=== PATIENT | male | born 1955 | race Caucasian/White ===

== ENCOUNTER 2016-10-14 00:59 | Emergency (ER) | payer OTHER ==
--- NOTE | 2016-10-17 19:49 | ER ---
ADMIT: 10/14/2016 RM/LOC: ER [facility] MR#: [id number] [address] [id number] DANIEL [place] [address] Emergency Room Report SEX: M AGE: 61 : 1955 DATE: 10/14/2016 HISTORY OF PRESENT ILLNESS: The patient is a 61-year-old male, with a past medical history of borderline asthma, on medication, who came to the ER with chief complaint of shortness of breath, cough, congestion chronically more than a week. The patient denies any chest pain. PHYSICAL EXAMINATION: GENERAL: In the ER, the patient was in no obvious distress. VITAL SIGNS: Afebrile, respiratory rate was 16, pulse was 84, and blood pressure was 121/85. HEAD and NECK: Noncontributory. Trachea midline. LUNGS: Bilateral wheezing on both lungs without any crackles. HEART: Normal heart sounds without any extra murmurs or S3 or S4. ABDOMEN: Soft. The rest of the physical exam is noncontributory. EKG was normal sinus rhythm without any ST or T changes or arrhythmia. Chest x-ray was questionable for mild infiltration and also had air bronchogram too. The patient received 2 breathing treatments with DuoNeb nebulizer, received Solu-Medrol IV 125 mg. The patient states he feels way better, O2 saturation also was good on room air. The patient was re-examined, wheezing has been resolved. The possibility of mild infiltration in the chest x-ray was discussed with the patient. 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 The patient was discharged with Z- Dudley. The patient already had albuterol inhaler at home. The patient is already on prednisone chronically too. The patient was stable to be discharged to home to be followed up by the primary doctor as needed. Alonzo Price MD/ roe JOB #: [id number] CC: Alonzo Price MD, Attending Physician Arturo Botello MD, Family Physician
== END 2016-10-14 03:00 | disposition home or self-care (01) ==
LOC: ER 00:59
DX: J18.9 Pneumonia, unspecified organism (principal); J45.909 Unspecified asthma, uncomplicated; Z79.899 Other long term (current) drug therapy

== ENCOUNTER → 2016-11-02 | Outpatient (CLI) | payer OTHER | END | disposition home or self-care (01) | LOC: RESC 12:49 | DX: R06.2 Wheezing (principal); R05 Cough ==